=== PATIENT | male | born 1995 | race American Indian/Alaskan Native ===

== ENCOUNTER 2022-07-07 21:40 | Emergency (ER) | payer SELFPAY ==
[2022-07-08] MEDS ORDERED: KETOROLAC 30 MG/1 ML INJ IV ONE (00:36)
[2022-07-08] MEDS ORDERED: FAMOTIDINE 20 MG/2 ML INJ IV ONE (00:36)
[2022-07-08] MEDS ORDERED: ONDANSETRON 4 MG/2 ML INJ IV ONE (00:36)
[2022-07-08 01:32] LABS: Color,Urine Yellow (Yellow)
[2022-07-08 01:34] LABS: Mucus,Urine 3+ /HPF
[2022-07-08 01:37] LABS: Basophils % (Auto) 0.7 % (0.0-1.8); Eosinophils # (Auto) 0.1 K/mm3 (0.0-0.4); Eosinophils % (Auto) 1.9 % (0.0-4.3); Hematocrit 42.9 % (35.5-45.6); Hemoglobin 14.4 gm/dl (11.8-15.2); Lymphocytes # (Auto) 1.5 K/mm3 (1.2-5.4); Lymphocytes % (Auto) 30.1 % (13.4-35.0); Mean Corpuscular HGB Conc 34 % (32-34); Mean Corpuscular Volume 85 fl (84-94); Monocytes # (Auto) 0.4 K/mm3 (0.0-0.8); Monocytes % (Auto) 7.6 % (0.0-7.3); Platelet Count 205 K/mm3 (140-440); Red Blood Count 5.04 M/mm3 (3.65-5.03); Red Cell Distribution Width 13.8 % (13.2-15.2)
[2022-07-08 01:46] LABS: Alanine Aminotransferase 10 units/L (7-56); Albumin 4.8 g/dL (3.9-5); Blood Urea Nitrogen 10 mg/dL (9-20); Calcium 9.7 mg/dL (8.4-10.2); Hemolysis Index 13
[2022-07-08 01:50] LABS: BUN/Creatinine Ratio 14
--- NOTE | 2022-07-08 02:51 | Cat Scan Report ---
CT ABDOMEN WITH CONTRAST INDICATION / CLINICAL INFORMATION: abdominal pain. Mid abdominal pain and loose bowel movements x3 we eks. Burning sensation. TECHNIQUE: Axial CT images were obtained through the abdomen after 100 cc Omnipaque [address] scans at this location are performed using CT dose reduction for ALARA by means of automated e xposure control. COMPARISON: None available. FINDINGS: LOWER CHEST: No significant abnormality of the imaged chest. LIVER: No significant abnormality. Portal vein appears patent. GALLBLADDER / BILE DUCTS: No significant abnormality. Biliary ducts grossly unremarkable. SPLEEN: No significant abnormality. PANCREAS: No significant abnormality. ADRENALS: No significant abnormality. KIDNEYS/URETERS: Subcentimeter cyst mid right kidney. Kidneys otherwise unremarkable. STOMACH / DUODENUM / SMALL BOWEL: Stomach is unremarkable. The visualized portion of the small bowel demonstrate no significant abnormality. COLON: The ascending colon has some evidence of thumbprinting which may in part be influenced by lack of distention. APPENDIX: The visualized portion of the appendix is normal in size and demonstrate no specific abnorm ality. PERITONEUM: No free fluid. No free air. No fluid collection. LYMPH NODES: No significant adenopathy. AORTA / ARTERIES: No significant abnormality. IVC / VEINS: No significant abnormality. SKELETAL SYSTEM: No significant abnormality. ADDITIONAL ABDOMINAL FINDINGS: None. IMPRESSION: 1. Thumbprinting of large bowel involving ascending colon may be in part in place by lack of distenti on. Colitis or other inflammatory bowel disease could be considered. Signer Name: Rg Scruggs II, MD Signed: 07/08/2022 2:46 AM Workstation Name: [id number]
[2022-07-08] MEDS ORDERED: levoFLOXacin 500 MG TAB PO ONE (03:16)
[2022-07-08] MEDS ORDERED: metroNIDAZOLE 500 MG TAB PO ONE (03:16)
--- NOTE | 2022-07-08 04:00 | Emergency Department Report ---
ED Abdominal Pain HPI - General Chief Complaint: Abdominal Pain Stated Complaint: CHEST PAIN/AB PAIN Source: patient Mode of arrival: Ambulatory Limitations: No Limitations - History of Present Illness Initial Comments: Patient is a 27-year-old -Beninese male with no past medical history who presents to the ED with complaint of acute onset persistent intermittent diffuse abdominal pain, nausea and diarrhea for the last 2 months. Patient states that the symptoms started soon after he was diagnosed with COVID-19 viral infection for which he was duly treated and recovered. Patient states that the symptoms have been persistent and worse especially in the last 2 weeks. Patient denies dizziness, syncope, fever, chills, cough, sore throat, dysuria, urinary frequency and urgency, testicular pain, constipation, hematochezia or hematemesis. MD Complaint: abdominal pain, other (diarrhea) -: Gradual, month(s) (2) Location: diffuse Radiation: none Migration to: no migration Severity: severe Severity scale (0 -10): 7 Quality: cramping, sharp Consistency: intermittent Improves With: nothing Worsens With: nothing Context: possible food poisoning Associated Symptoms: denies other symptoms, nausea, diarrhea. denies: vomiting, fever, chills, constipation, dysuria, hematemesis, hematochezia, melena, hematuria - Related Data Previous Rx's Medication Instructions Recorded Last Taken Type Ciprofloxacin HCl 500 mg PO Q12H #20 tab 07/08/22 Unknown Rx Dicyclomine [Bentyl] 20 mg PO QID PRN #30 tablet 07/08/22 Unknown Rx Ondansetron [Zofran Odt] 4 mg PO Q8HR PRN #20 tab.rapdis 07/08/22 Unknown Rx metroNIDAZOLE [Flagyl] 500 mg PO Q8HR #30 tablet 07/08/22 Unknown Rx Allergies Allergy/AdvReac Type Severity Reaction Status Date / Time No Known Allergies Allergy Verified 07/07/22 22:19 ED Review of Systems ROS: Stated complaint: CHEST PAIN/AB PAIN Other details as noted in HPI Constitutional: denies: chills, fever Eyes: denies: eye pain, eye discharge, vision change ENT: denies: ear pain, throat pain Respiratory: denies: cough, shortness of breath, wheezing Cardiovascular: denies: chest pain, palpitations Endocrine: no symptoms reported Gastrointestinal: abdominal pain, nausea, diarrhea Genitourinary: denies: urgency, dysuria Musculoskeletal: denies: back pain, joint swelling, arthralgia Skin: denies: rash, lesions Neurological: denies: headache, weakness, paresthesias Psychiatric: denies: anxiety, depression Hematological/Lymphatic: denies: easy bleeding, easy bruising ED Past Medical Hx - Medications Home Medications: Home Medications Medication Instructions Recorded Confirmed Last Taken Type Ciprofloxacin HCl 500 mg PO Q12H #20 tab 07/08/22 Unknown Rx Dicyclomine [Bentyl] 20 mg PO QID PRN #30 tablet 07/08/22 Unknown Rx Ondansetron [Zofran Odt] 4 mg PO Q8HR PRN #20 tab.rapdis 07/08/22 Unknown Rx metroNIDAZOLE [Flagyl] 500 mg PO Q8HR #30 tablet 07/08/22 Unknown Rx ED Physical Exam - General Limitations: No Limitations General appearance: alert, in no apparent distress - Head Head exam: Present: atraumatic, normocephalic, normal inspection - Eye Eye exam: Present: normal appearance, PERRL, EOMI Pupils: Present: normal accommodation - ENT ENT exam: Present: normal exam, normal orophraynx, mucous membranes moist, TM's normal bilaterally, normal external ear exam - Neck Neck exam: Present: normal inspection, full ROM. Absent: tenderness - Respiratory Respiratory exam: Present: normal lung sounds bilaterally. Absent: respiratory distress, wheezes, rales, rhonchi, chest wall tenderness, accessory muscle use, decreased breath sounds, prolonged expiratory - Cardiovascular Cardiovascular Exam: Present: regular rate, normal rhythm, normal heart sounds. Absent: systolic murmur, diastolic murmur, rubs, gallop - GI/Abdominal GI/Abdominal exam: Present: soft, tenderness (Palpable mild diffuse tenderness), normal bowel sounds. Absent: guarding, rebound, hyperactive bowel sounds, hypoactive bowel sounds, organomegaly, mass - Extremities Exam Extremities exam: Present: normal inspection, full ROM, normal capillary refill. Absent: tenderness - Back Exam Back exam: Present: normal inspection, full ROM. Absent: tenderness, CVA tenderness (R), CVA tenderness (L), muscle spasm, paraspinal tenderness, vertebral tenderness, rash noted - Neurological Exam Neurological exam: Present: alert, oriented X3, CN II-XII intact, normal gait, reflexes normal - Psychiatric Psychiatric exam: Present: normal affect, normal mood - Skin Skin exam: Present: warm, dry, intact, normal color. Absent: rash ED Medical Decision Making - Lab Data Result diagrams: 07/08/22 00:45 07/08/22 00:45 - Radiology Data Radiology results: report reviewed, image reviewed [facility] [address] [place] [address] Cat Scan Report Signed Patient: ADAMA PAUL MR#: [id number] : 1995 Acct:[id number] Age/Sex: 27 / M ADM Date: 07/07/22 Loc: ED Attending Dr: Ordering Physician: ALONSO ALCARAZ Date of Service: 07/08/22 Procedure(s): CT abdomen w con Accession Number(s): [id number] cc: ALONSO ALCARAZ CT ABDOMEN WITH CONTRAST INDICATION / CLINICAL INFORMATION: abdominal pain. Mid abdominal pain and loose bowel movements x3 weeks. Burning sensation. TECHNIQUE: Axial CT images were obtained through the abdomen after 100 cc Omnipaque [address] scans at this location are performed using CT dose reduction for ALARA by means of automated exposure control. COMPARISON: None available. FINDINGS: LOWER CHEST: No significant abnormality of the imaged chest. LIVER: No significant abnormality. Portal vein appears patent. GALLBLADDER / BILE DUCTS: No significant abnormality. Biliary ducts grossly unremarkable. SPLEEN: No significant abnormality. PANCREAS: No significant abnormality. ADRENALS: No significant abnormality. KIDNEYS/URETERS: Subcentimeter cyst mid right kidney. Kidneys otherwise unremarkable. STOMACH / DUODENUM / SMALL BOWEL: Stomach is unremarkable. The visualized portion of the small bowel demonstrate no significant abnormality. COLON: The ascending colon has some evidence of thumbprinting which may in part be influenced by lack of distention. APPENDIX: The visualized portion of the appendix is normal in size and demonst rate no specific abnormality. PERITONEUM: No free fluid. No free air. No fluid collection. LYMPH NODES: No significant adenopathy. AORTA / ARTERIES: No significant abnormality. IVC / VEINS: No significant abnormality. SKELETAL SYSTEM: No significant abnormality. ADDITIONAL ABDOMINAL FINDINGS: None. IMPRESSION: 1. Thumbprinting of large bowel involving ascending colon may be in part in place by lack of distention. Colitis or other inflammatory bowel disease could be considered. Signer Name: Eliseo Bobo II, MD Signed: 07/08/2022 2:46 AM Workstation Name: [id number] Transcribed By: ARASELI Dictated By: ELISEO BOBO II, MD Electronically Authenticated By: ELISEO BOBO II, MD Signed Date/Time: 07/08/22245 DD/ 7 TD/TT: - Medical Decision Making This is a 27-year-old -Beninese male with no past medical history who presents to the ED with complaint of acute onset persistent intermittent diffuse abdominal pain, nausea and diarrhea for the last 2 months. Patient states that the symptoms started soon after he was diagnosed with COVID-19 viral infection for which he was duly treated and recovered. Patient states that the symptoms have been persistent and worse especially in the last 2 weeks. In the ED, patient is alert and oriented x3 and is not in any distress. Lab test results were reviewed and are all nonactionable. Abdomen pelvis CT scan with IV contra st showed changes in the ascending colon consistent with mild colitis. Patient was treated in the ED empirically with Flagyl 500 mg p.o. x1 and Levaquin 500 mg p.o. x1. On reevaluation, patient's pain is well controlled with medication. Patient was discharged home on medications and advised to follow-up with his primary care physician in 5 to 7 days for reevaluation or return to the ED immediately if symptoms get worse. - Differential Diagnosis Colitis; GERD; gastroenteritis; appendicitis; UTI; kidney stones Critical care attestation.: If time is entered above; I have spent that time in minutes in the direct care of this critically ill patient, excluding procedure time. ED Disposition Clinical Impression: Abdominal pain in male, Diarrhea in adult patient, Colitis Disposition: 01 HOME / SELF CARE / HOMELESS Is pt being admited?: No Does the pt Need Aspirin: No Condition: Stable Instructions: Abdominal Pain, Adult, [id number], Diarrhea, Adult, [id number], Colitis Additional Instructions: All lab test results were reviewed and are all nonactionable. Abdomen pelvis CT scan with IV contrast showed mild colitis in the descending colon. Therefore take medication as advised, drink plenty of fluids, follow-up with your primary care physician in 7 to 10 days for reevaluation. Return to the ED immediately if symptoms get worse. Prescriptions: Dicyclomine [Bentyl] 20 mg PO QID PRN #30 tablet PRN Reason: abdominal pain Ciprofloxacin HCl 500 mg PO Q12H #20 tab metroNIDAZOLE [Flagyl] 500 mg PO Q8HR #30 tablet Ondansetron [Zofran Odt] 4 mg PO Q8HR PRN #20 tab.rapdis PRN Reason: Nausea Referrals: [facility] [Provider Group] - 7-10 days Forms: Work/School Release Form(ED) Time of Disposition: 04:00 Print Language: GERMAN
[2022-07-08 06:39] VITALS: BP 136/73
== END 2022-07-08 06:39 | disposition home or self-care (01) ==
LOC: ED 21:40
DX: R10.9 Unspecified abdominal pain (principal); K52.9 Noninfective gastroenteritis and colitis, unspecified
CPT/HCPCS: 36415; 74160; 80053; 81001; 83690; 85025; 96374; 96375; 99284; J1885; J2405; J3490; Q9967